=== PATIENT | male | born 1935 | race Caucasian/White ===

== ENCOUNTER 2022-08-08 16:12 | Emergency (ER) | payer MEDICARE ==
[2022-08-08] MEDS ORDERED: Sodium Chloride 0.9% 500 ML ONE ×2 (16:43→18:38)
[2022-08-08] MEDS ORDERED: Benzonatate 100 MG CAP ONE (17:32)
[2022-08-08 17:37] LABS: #Eosinphils 0.1 thou/uL (0.0-0.7); #Lymphocytes 0.7 thou/uL (1.20-3.40); #Monocytes 0.4 thou/uL (0.11-0.59); #Neutrophils 2.1 thou/uL (1.40-6.50); %Basophils 1.5 % (0.0-1.0); %Eosinophils 1.6 % (0.0-10.0); %Lymphocytes 22.4 % (21.0-51.0); %Monocytes 11.2 % (0.0-10.0); %Neutrophils 63.4 % (42.0-75.0); Hemoglobin 5.5 g/dL (14.0-18.0); Mean Corpuscular HGB CONC 31.2 g/dL (32.0-36.0); Mean Corpuscular Hemoglobin 22.6 pg (27.0-31.0); Mean Corpuscular Volume 72.4 fl (78.0-98.0); Mean Platelet Volume 11.6 fL (7.4-10.4); Platelet Count 160 10x3/uL (130-400); RBC Distribution Width 19.8 % (11.5-14.5); Red Blood Cell (RBC) Count 2.44 mill/uL (4.70-6.10); White Blood Cell (WBC) Count 3.3 10x3/uL (4.8-10.8)
[2022-08-08 17:38] LABS: ALT (SGPT) 9 U/L (8-55); AST (SGOT) 19 U/L (5-34); Albumin 3.5 g/dL (3.4-4.8); Alkaline Phosphatase 118 U/L (40-110); Anion Gap 12 mmol/L (10-20); BUN (Urea Nitrogen) 9 mg/dL (8.4-25.7); Bilirubin, Total 0.5 mg/dL (0.2-1.2); Calc. Creatinine Clearance 0 mL/min (70-130); Calcium 8.1 mg/dL (7.8-10.44); Carbon Dioxide 20 mmol/L (23-31); Chloride 107 mmol/L (98-107); Estimated GFR 88; Globulin 2.3 g/dL (2.4-3.5); Glucose 110 mg/dL (83-110); Potassium 3.3 mmol/L (3.5-5.1); Protein, Total 5.8 g/dL (5.8-8.1); Sodium 136 mmol/L (136-145)
[2022-08-08] MEDS ORDERED: Albuterol Sulfate 2.5 mg/0.5 ml Neb ONE (17:57)
[2022-08-08] MEDS ORDERED: Albuterol Sulfate 2.5 mg/3 ml Neb ONE (17:57)
[2022-08-08] MEDS ORDERED: Promethazine HCl 25 MG/ML VIAL ONE (18:12)
[2022-08-08] MEDS ORDERED: Sodium Chloride 0.9% 50 ML ONE (18:14)
[2022-08-08 18:26] LABS: Anisocytosis MODERATE=16-30 cells (100X) (0-5/hpf); Hypochromia MODERATE=16-30 cells (100X) (0-5/hpf); Microcytosis SLIGHT = 6-15 cells (100X) (0-5/hpf); Poikilocytosis SLIGHT = 6-15 cells (100X) (0-5/hpf); Polychromasia MODERATE = 3-4 cells (100X) (0-2/hpf)
[2022-08-08 18:27] LABS: Target Cells SLIGHT = 2-5 cells (100X) (0-1/hpf)
== END 2022-08-08 23:08 | disposition short-term general hospital (02) ==
LOC: MADERS 16:12
DX: K92.2 Gastrointestinal hemorrhage, unspecified (principal); D64.9 Anemia, unspecified
CPT/HCPCS: 36415; 36430; 71045; 80053; 82274; 83605; 83880; 84484; 85025; 86850; 86900; 86901; 87804; 93005; 94760; 96365; J2550; J7030; J7611; J7620; P9016

== ENCOUNTER 2022-08-19 08:17 | Emergency (ER) | payer MEDICARE ==
[2022-08-19] MEDS ORDERED: Sodium Chloride 0.9% 500 ML ONE (09:03)
[2022-08-19 09:11] LABS: Hemoglobin 9.7 g/dL (14.0-18.0); Mean Corpuscular HGB CONC 31.6 g/dL (32.0-36.0); Mean Corpuscular Hemoglobin 24.9 pg (27.0-31.0); Mean Platelet Volume 12.2 fL (7.4-10.4); Platelet Count 139 10x3/uL (130-400); RBC Distribution Width 22.7 % (11.5-14.5); Red Blood Cell (RBC) Count 3.88 mill/uL (4.70-6.10); White Blood Cell (WBC) Count 17.2 10x3/uL (4.8-10.8)
[2022-08-19 09:28] LABS: ALT (SGPT) 18 U/L (8-55); AST (SGOT) 21 U/L (5-34); Albumin 3.5 g/dL (3.4-4.8); Alkaline Phosphatase 88 U/L (40-110); Anion Gap 13 mmol/L (10-20); BUN (Urea Nitrogen) 12 mg/dL (8.4-25.7); Bilirubin, Total 0.8 mg/dL (0.2-1.2); Calc. Creatinine Clearance 0 mL/min (70-130); Calcium 8.5 mg/dL (7.8-10.44); Carbon Dioxide 23 mmol/L (23-31); Chloride 102 mmol/L (98-107); Estimated GFR 88; Globulin 2.4 g/dL (2.4-3.5); Glucose 94 mg/dL (83-110); Lipase 55 U/L (8-78); Magnesium 2.2 mg/dL (1.6-2.6); Potassium 3.8 mmol/L (3.5-5.1); Protein, Total 5.9 g/dL (5.8-8.1); Sodium 134 mmol/L (136-145)
[2022-08-19 09:31] LABS: Bilirubin Negative (Negative); Blood, Urine Small (Negative); Clarity Clear (Clear); Glucose, Urine (Dipstick) Negative (Negative); Ketone, Urine Negative (Negative); Leukocyte Negative (Negative); Nitrite Negative (Negative); Protein, Urine (Dipstick) Negative (Neg-Trace); Specific Gravity, Urine 1.015 (1.005-1.030); Urobilinogen 0.2 mg/dL (Less than 2)
[2022-08-19 09:36] LABS: Band 12 % (5-11); Manual Diff?? YES
[2022-08-19 09:37] LABS: Anisocytosis SLIGHT = 6-15 cells (100X) (0-5/hpf); Lymphocytes 8 % (21-51); Monocytes 12 % (0-10); Neutrophil 68 % (42-75); Platelet Morphology Comment Appears Adequate
[2022-08-19] MEDS ORDERED: Iopamidol 370 76% 100 ML VIAL ONE (09:39)
[2022-08-19 09:49] LABS: Bacteria/HPF Rare-Few HPF (None Seen); Squamous Epithelial 0-3 HPF (0-3); WBC/HPF 0-3 HPF (0-3)
[2022-08-19 10:20] LABS: SARS-CoV-2 NAA Rapid Test Not Detected (NotDetected)
== END 2022-08-19 11:00 | disposition short-term general hospital (02) ==
LOC: MADERS 08:17
DX: R53.1 Weakness (principal); Z20.822 Contact with and (suspected) exposure to COVID-19
CPT/HCPCS: 0240U; 70450; 71045; 74177; 80053; 83605; 83690; 83735; 83880; 84484; 85025; 87040; 87086; 93005; 99285; 81003; 81015; J7030; Q9967

== ENCOUNTER 2022-09-20 00:31 | Emergency (ER) | payer MEDICARE ==
[2022-09-20 01:41] LABS: Bilirubin Negative (Negative); Blood, Urine Moderate (Negative); Glucose, Urine (Dipstick) Negative (Negative); Ketone, Urine 15 mg/dL (Negative); Leukocyte Moderate (Negative); Nitrite Negative (Negative); Protein, Urine (Dipstick) 100 mg/dL (Neg-Trace); Specific Gravity, Urine 1.025 (1.005-1.030); pH, Urine 6.5 (5.0-9.0)
[2022-09-20 01:48] LABS: Bacteria/HPF 1+ HPF (None Seen); Clarity Cloudy (Clear); Mucous/LPF 2+ LPF (<2+); RBC/HPF Greater than 50 HPF (0-3); WBC/HPF Greater than 50 HPF (0-3); Yeast-Budding 1+ HPF (None Seen); Yeast-Hyphae 1+ HPF (None Seen)
[2022-09-20] MEDS ORDERED: cefTRIAXone\\ROCEPHIN 1 GM VIAL ONE (02:08)
[2022-09-20] MEDS ORDERED: Sodium Chloride 0.9% 100 ML ONE (02:09)
[2022-09-20] MEDS ORDERED: Sodium Chloride 0.9% 500 ML BAG ONE (07:03)
== END 2022-09-20 02:45 | disposition home or self-care (01) ==
LOC: MADERS 00:31
DX: T83.091A Other mechanical complication of indwelling urethral catheter, initial encounter (principal); N39.0 Urinary tract infection, site not specified; E86.0 Dehydration; Z79.899 Other long term (current) drug therapy
CPT/HCPCS: 51702; 81003; 81015; 87086; 96365; J0696; J3490; J7030